=== PATIENT | female | born 1955 | race Caucasian/White ===

== ENCOUNTER → 2018-05-25 | Day surgery (SDC) | payer BC, OTHER ==
[~2018-05-25] MED LIST: ANASTROZOLE PO; DIOVAN PO; DIOVAN160 MG PO; EFFEXOR PO; FAMOTIDINE PO; FENTANYL CITRATE/PF 100MCG/2 ML INJ ONE; LIDOCAINE HCL 2% LOCAL INJ 5 ML SDV VIAL INJ ONE; MIDAZOLAM HCL 2 MG/2 ML VIAL ONE; PANTOPRAZOLE PO; PROPOFOL IV EMULSION 10 MG/ML 50 ML VIAL ONE; PROTONIX PO
== END ==
LOC: OR 05:48
PROVIDERS: ATTEND Internal Medicine Gastroenterology
DX: Z86.010 Personal history of colon polyps (principal); R12 Heartburn; D63.8 Anemia in other chronic diseases classified elsewhere; I10 Essential (primary) hypertension; Z85.3 Personal history of malignant neoplasm of breast; Z78.0 Asymptomatic menopausal state; K22.10 Ulcer of esophagus without bleeding; K44.9 Diaphragmatic hernia without obstruction or gangrene; K29.70 Gastritis, unspecified, without bleeding; K21.0 Gastro-esophageal reflux disease with esophagitis
CPT/HCPCS: 43239; 45378; 93005; J2001; J2250

== ENCOUNTER → 2018-09-07 | Day surgery (SDC) | payer BC ==
[2018-09-06 15:52] LABS: BASOPHILS # (AUTO) 0.1 (0.0-0.1); EOSINOPHILS # (AUTO) 0.3 (0.0-0.4); EOSINOPHILS % 6.1 % (0.0-6.0); HEMATOCRIT 34.1 % (34.2-44.1); HEMOGLOBIN 11.1 g/dL (12.0-16.0); LYMPHOCYTES # (AUTO) 1.1 (1.0-3.2); LYMPHOCYTES % 21.9 % (18.0-39.1); MEAN CORPUSCULAR HEMOGLOBIN 30.4 pg (28-32); MEAN CORPUSCULAR HGB CONC 32.6 g/dL (31-35); MEAN CORPUSCULAR VOLUME 93.4 fL (81-99); MONOCYTES # (AUTO) 0.5 (0.2-0.8); MONOCYTES % 10.3 % (4.4-11.3); NEUTROPHILS # (AUTO) 3.1 (2.1-6.9); NEUTROPHILS % 60.3 % (38.7-80.0); PLATELET COUNT 268 x10e3/uL (140-360); RED BLOOD COUNT 3.65 x10e6/uL (3.6-5.1); RED CELL DISTRIBUTION WIDTH 13.1 % (11.7-14.4)
--- OUTSIDE RECORDS SUMMARY | 2018-09-07 06:30 | XMS REPORT ---
Author Author [facility] Address Unknown Phone Unavailable Care Team Providers Care Organ Assembler Name Role Phone Unavailable Unavailable Payers Payer Name Policy Type Policy Number Effective Date Expiration Date Problems This patient has no known problems. Allergies, Adverse Reactions, Alerts Allergy Name Allergy Type Status Severity Reaction(s) Onset Date Inactive Date Treating Clinician Comments clavulanic acid DA Active MO 2017-12-01 00:00:00 amoxicillin DA Active MO 2017-12-01 00:00:00 meperidine DA Active SV 2017-12-01 00:00:00 Medications This patient has no known medications.
[2018-09-07 11:30] VITALS: BP 114/78
== END | disposition home or self-care (01) ==
LOC: OR 06:27
PROVIDERS: ATTEND Internal Medicine Gastroenterology
DX: K22.10 Ulcer of esophagus without bleeding (principal); K31.7 Polyp of stomach and duodenum; K29.70 Gastritis, unspecified, without bleeding; K21.0 Gastro-esophageal reflux disease with esophagitis; K57.90 Diverticulosis of intestine, part unspecified, without perforation or abscess without bleeding; K44.9 Diaphragmatic hernia without obstruction or gangrene; K29.80 Duodenitis without bleeding; D64.9 Anemia, unspecified; R01.1 Cardiac murmur, unspecified; I10 Essential (primary) hypertension; F41.9 Anxiety disorder, unspecified; Z88.6 Allergy status to analgesic agent; Z88.0 Allergy status to penicillin; Z01.810 Encounter for preprocedural cardiovascular examination; Z01.812 Encounter for preprocedural laboratory examination; Z85.3 Personal history of malignant neoplasm of breast; Z92.21 Personal history of antineoplastic chemotherapy; Z92.3 Personal history of irradiation
CPT/HCPCS: 36415; 43239; 85025; 93005; J2001; J2250